=== PATIENT | female | born 1980 | race Caucasian/White ===

== ENCOUNTER 2018-02-19 17:41 | Emergency (ER) | payer OTHER ==
[~2018-02-19] VITALS: Ht 182.9 cm; Wt 68.5 kg
[~2018-02-19 17:41] MED LIST: CIPRO500 MG PO; ENDOCET 5-3251 EACH PO; FLAGYL500 MG PO; MOTRIN800 MG PO; TYLENOL325 M1 PO
[2018-02-19 18:12] LABS: APPEARANCE TURBID ((CLEAR)); BILIRUBIN NEGATIVE; BLOOD MODERATE; COLOR AMBER ((YELLOW)); GLUCOSE (STRIP) NEGATIVE; KETONES NEGATIVE; LEUKOCYTES MODERATE; NITRITE POSITIVE; PROTEIN (STRIP) 100; SPECIFIC GRAVITY 1.028 (1.000-1.030); UROBILINOGEN 0.2 MG/DL (0.2-1.0)
[2018-02-19 18:24] LABS: BACTERIA 3+ /HPF; EPITHELIAL CELLS 3+ /HPF; MUCUS NONE SEEN /LPF; RED BLOOD CELLS 30-40 /HPF (0-5); WHITE BLOOD CELLS 20-30 /HPF (0-5)
[2018-02-19 19:17] LABS: CANDIDA DNA PROBE NEGATIVE; GARDNERELLA DNA PROBE POSITIVE; TRICHOMONAS DNA PROBE POSITIVE
[2018-02-19] MEDS ORDERED: KEFLEX500 MG PO (19:26)
[2018-02-19] MEDS ORDERED: PYRIDIUM200 MG PO (19:26)
[2018-02-19] MEDS ORDERED: FLAGYL500 MG PO (19:26)
[2018-02-19 19:39] VITALS: BP 128/66
[2018-02-20 08:53] LABS: SOURCE SWAB
== END 2018-02-19 19:41 | disposition home or self-care (01) ==
LOC: EME 17:41
PROVIDERS: Physician Assistant
DX: N39.0 Urinary tract infection, site not specified (principal); A59.9 Trichomoniasis, unspecified; N76.0 Acute vaginitis; F17.200 Nicotine dependence, unspecified, uncomplicated; Z87.442 Personal history of urinary calculi; Z87.440 Personal history of urinary (tract) infections; Z91.048 Other nonmedicinal substance allergy status; Z91.041 Radiographic dye allergy status
CPT/HCPCS: 81003; 81025; 87210; 87480; 87491; 87510; 87591; 87660; 99281; 99285; J0696